=== PATIENT | female | born 1950 | race Caucasian/White ===

== ENCOUNTER → 2016-08-14 | Outpatient (CLI) | payer OTHER ==
--- NOTE | 2016-08-14 17:25 | MAM ---
History: Well woman exam. Date of exam: 08/14/2016 Services provided: Bilateral full field digital screening mammography. CAD, the images were reviewed with R2 computer aided detection. FINDINGS: Glandular tissue is scattered glandular contour with increased mammographic density. Comparison with 2016 exam. Small nodule medial left breast appears new since the prior examination, approximately 6 cm from the nipple and expected at the 8-9 o'clock portion of the left breast. No associated microcalcifications or architectural distortion. Right parenchymal pattern is unremarkable. IMPRESSION: Incomplete study Recommendation: True lateral view left breast with spot compression views in the true lateral and craniocaudal projections. Rolled views left breast. Directed ultrasound if indicated clinically. BIRAD CATEGORY: 0 INCOMPLETE Electronically signed by: Regina Canales MD 08/14/2016 5:25 PM CDT
== END | disposition home or self-care (01) ==
LOC: MAMMO 11:03
PROVIDERS: ATTEND Family Medicine
DX: Z12.31 Encounter for screening mammogram for malignant neoplasm of breast (principal)

== ENCOUNTER → 2016-08-28 | Outpatient (CLI) | payer OTHER ==
--- NOTE | 2016-08-28 12:36 | MAM ---
EXAM DESCRIPTION: Diagnostic Mammo,Left CLINICAL HISTORY: 65 yearsFemaleABN MAMMO COMPARISON: Digital screening bilateral examination 08/14/2016. Targeted left breast ultrasound on the same visit. TECHNIQUE: Digital Spot compression of the anterior mid medial left breast in the ML projection, magnification of the same region in the CC view. And full-field digital left breast ML image. CAD was utilized. FINDINGS: Small mostly well circumscribed oval densities. The borders are partially obscured. The density is equal to that of the surrounding fibroglandular tissues. Small vascular calcifications but no calcifications associated with these regions. Solitary calcifications are seen nearby. ULTRASOUND: Two palpable hypoechoic masses with well-defined maloney and echogenic centers are visualized at the 900 clock position approximately 6 cm from the nipple. Minimal color Doppler vascularity. Mixed posterior features. Parallel orientation. These are consistent with lymph nodes. IMPRESSION: BIRAD CATEGORY: 2 BENIGN Recommendation: Return to routine digital screening bilateral follow-up in one year interval from August 2016. The results and follow-up were discussed in person with the patient. Communication explaining the results and followup will be mailed to the patient and referring care provider. According to the [employer], yearly mammograms are recommended starting at age 40 and continuing as long as a woman is in good health. Any breast change noted on a breast self-exam should be reported promptly to the patient's healthcare provider. Breast MRI is recommended for women with an approximately 20-25% or greater lifetime risk of breast cancer, including women with a strong family history of breast or ovarian cancer and women who have been treated for Hodgkin's disease. A negative mammographic report should not delay tissue diagnosis in patients with significant clinical history or physical findings. Extremely dense breast tissue limits the sensitivity of digital mammography. Electronically signed by: Britton Sherwood MD 08/28/2016 12:36 PM CDT Workstation: [id number]
--- NOTE | 2016-08-28 12:42 | US ---
EXAM DESCRIPTION: Breast,Left CLINICAL HISTORY: 65 yearsFemaleABNORMAL MAMMO COMPARISON: Diagnostic digital mammogram of the left breast on this visit. Bilateral digital screening examination 08/24/2016. TECHNIQUE: Transcutaneous scanning of the 900 clock position of the left breast utilizing two-dimensional and Doppler modes. Scanning performed by the field support representative . FINDINGS: Two palpable hypoechoic masses with well-defined maloney and echogenic centers are visualized at the 900 clock position approximately 6 cm from the nipple. Minimal color Doppler vascularity. Mixed posterior features. Parallel orientation. These are consistent with lymph nodes. IMPRESSION: BIRAD CATEGORY: 2 BENIGN. Please refer to left breast digital diagnostic mammographic examination and report on this visit. The findings and the follow-up plan were reviewed in person with the patient after the examination. Electronically signed by: Britton Sherwood MD 08/28/2016 12:42 PM CDT Workstation: [id number]
== END | disposition home or self-care (01) ==
LOC: MAMMO 09:49
PROVIDERS: ATTEND Family Medicine
DX: R92.8 Other abnormal and inconclusive findings on diagnostic imaging of breast (principal)
CPT/HCPCS: 76641; 77065; G0206

== ENCOUNTER → 2018-02-12 | Outpatient (CLI) | payer MEDICARE, OTHER ==
--- NOTE | 2018-02-14 11:56 | MAM ---
EXAM DESCRIPTION: 3D Screening BILATERAL : Digital Mammography. CLINICAL HISTORY: 67 years Female SCREENING . No complaints or personal history of breast cancer. Sister with breast cancer. Childbirth. Postmenopausal 31 years. Currently on HRT. Lifetime risk of developing breast cancer (Tyrer-Cuzick model)(%): 11.0 COMPARISON: 2-D digital screening bilateral mammography 08/14/2016. Diagnostic digital mammography and left breast ultrasound 08/28/2016 TECHNIQUE: Bilateral CC and MLO projection full-field images, digital tomosynthesis mammographic technique. Bilateral digital 2-D full-field MLO images. CAD not available for tomosynthesis or 2-D images. FINDINGS: The breast parenchymal density pattern is: Heterogeneously dense breast tissue, which may obscure small masses. No skin thickening or nipple retraction. Skin mole marker undersurface posterior right breast. Bilateral solitary microcalcifications. No new focal, stellate mass or density, focal asymmetry , and no suspicious microcalcifications bilaterally. Stable mammograms compared to prior study. Taking into account, differences in mammographic technique. IMPRESSION: Benign exam. BIRAD CATEGORY: 2 BENIGN FINDINGS. RECOMMENDATIONS: FOLLOW UP: Routine digital bilateral mammographic screening, one year interval from February 2018. Written communication explaining the IMPRESSION and follow-up, will be mailed to the patient and referring health care provider. According to the [employer], yearly mammograms are recommended starting at age 40 and continuing as long as a woman is in good health. Any breast change noted on a breast self-exam should be reported promptly to the patient's healthcare provider. Breast MRI is recommended for women with an approximately 20-25% or greater lifetime risk of breast cancer, including women with a strong family history of breast or ovarian cancer and women who have been treated for Hodgkin's disease. A negative mammographic report should not delay tissue diagnosis in patients with significant clinical history or physical findings. Extremely dense breast tissue limits the sensitivity of digital mammography. Electronically signed by: Britton Sherwood MD 02/14/2018 11:54 AM AUDIO VISUAL TECHNICIAN
== END ==
LOC: MAMMO 13:06
PROVIDERS: ATTEND Family Medicine
DX: Z12.31 Encounter for screening mammogram for malignant neoplasm of breast (principal)

== ENCOUNTER 2019-03-16 05:05 | Day surgery (SDC) | payer MEDICARE, OTHER ==
[2019-03-16] MEDS ORDERED: MOXIFLOXACIN HCL (OPHTH) 1 DROP DROPS ONE (05:49)
[2019-03-16] MEDS ORDERED: TROP 1%/CYCLOPEN 1%/PHENYL 2% DROPS OPHTH ONE (10:00)
[2019-03-16] MEDS ORDERED: PROPARACAINE 0.5% OPHTH SOL 15 ML BTTL RIGHT_EYE ONE (10:00)
== END 2019-03-16 07:20 | disposition home or self-care (01) ==
LOC: AMB 05:05
PROVIDERS: ATTEND Ophthalmology
DX: H26.491 Other secondary cataract, right eye (principal); Z88.0 Allergy status to penicillin; Z88.8 Allergy status to other drugs, medicaments and biological substances; Z79.84 Long term (current) use of oral hypoglycemic drugs; Z79.899 Other long term (current) drug therapy

== ENCOUNTER → 2019-04-22 | Outpatient (CLI) | payer MEDICARE, OTHER ==
--- NOTE | 2019-04-22 17:36 | US ---
EXAM DESCRIPTION: 3D Diagnostic, Bilateral (accession [id number]), Breast,Right (accession [id number]): Ultrasound CLINICAL HISTORY: 68 yearsFemale Nipple discharge brownish dark, nipple discharge for approximately 1 month on the right. Increases with compression. Yellowish discharge from left nipple initially but not presently. No personal history of breast cancer. 2 sisters with breast cancer. No other family history of breast cancer. Menarche age 15. Childbirth age 17. Menopause age 38. Currently on HRT Lifetime risk of developing breast cancer (Tyrer-Cuzick model)(%): 9.7. COMPARISON: Bilateral screening digital breast tomosynthesis February 2018. 2-D digital screening bilateral mammography August 2016. TECHNIQUE: Bilateral LM, CC, and MLO projection full-field images, spot compression right retroareolar CC and MLO projections: digital tomosynthesis technique. Bilateral 2-D digital full-field images: LM, CC, and MLO projections. Retroareolar 2-D right breast spot compression CC and LM projections. CAD available for 2-D images.. Transcutaneous scanning of the retroareolar right breast. utilizing briones-scale and Doppler modes. Scanning performed by the psychologist counseling and Dr. Sherwood. FINDINGS: The breast parenchymal density pattern is: Heterogeneously dense breast tissue, which may obscure small masses. No skin thickening or nipple retraction. Dense branching mass in the retroareolar right breast. Not associated with microcalcifications. Not seen on the prior study. Bilateral parenchymal solitary microcalcifications. Bilateral vascular calcifications. No new focal, stellate mass or density, focal asymmetry , and no suspicious microcalcifications left breast. Ultrasound: Scanning of the retroareolar right breast. The nipple is a tubular structure which appears to contain echogenic debris and connect with smaller caliber channels laterally and posteriorly more than medially. The larger retroareolar structure measures 1.2 x 0.8 x 1.1 cm. Wider than tall orientation circumscribed and lobulated margins and posterior acoustic enhancement. No abnormal vascularity. No dominant solid mass. No large calcifications. IMPRESSION: Dilated duct containing debris with smaller branching ducts, but debris could be obscuring a intraductal mass. ASSESSMENT: 1. BI-RADS Category 4: SUSPICIOUS. Sub-category 4A - Low Suspicion For Malignancy. 2. Surgical consultation and tissue diagnosis is recommended if there are no clinical contraindications. The FINDINGS and FOLLOW-UP plan were reviewed in person with the patient following the examination. Written communication explaining the IMPRESSION and FOLLOW-UP will be mailed to the patient and referring care provider. CRITICAL COMMUNICATION: The critical value was discussed directly by phone by Dr. Sherwood, with Dr. Britton Winchester at approximately 1625 hours, on April 22, 2019. Electronically signed by: Britton Sherwood MD 04/22/2019 5:34 PM [facility]
== END ==
LOC: MAMMO 09:00
PROVIDERS: ATTEND Family Medicine
DX: N64.52 Nipple discharge (principal)
CPT/HCPCS: 76641; 77066; G0279

== ENCOUNTER 2019-05-28 05:41 | Day surgery (SDC) | payer MEDICARE, OTHER ==
--- NOTE | 2019-05-25 11:14 | RAD ---
EXAM DESCRIPTION: Chest,2 Views CLINICAL HISTORY: pre op COMPARISON: None TECHNIQUE: PA/lateral FINDINGS: Right rib fractures are present with callus formation. Heart size is normal with normal pulmonary vascularity. No pleural effusion or pneumothorax. Density in the medial left lung base could be related to hiatal hernia although partial volume loss in the left lower lobe could produce a similar appearance. Lungs are otherwise clear with no consolidating infiltrate. Lateral view shows intact sternum and T-spine. On the lateral view, density behind the heart is thought to be hiatal hernia. Correlate with other studies if indicated. IMPRESSION: Right rib fractures. Density behind the heart probably hiatal hernia. Electronically signed by: Dave Jesus MD 05/25/2019 11:12 AM SUPERMARKET MANAGER
[2019-05-28] MEDS ORDERED: PROPOFOL 200 MG/20 ML VIAL IV ONE (07:00)
[2019-05-28] MEDS ORDERED: LIDOCAINE 1% 10 ML VIAL INJ ONE (07:00)
[2019-05-28] MEDS ORDERED: DEXAMETHASONE INJ 10 MG/ML VIAL ONE (07:00)
[2019-05-28] MEDS ORDERED: raNITIdine HCL INJ 25 MG/ML VIAL ONE (07:00)
[2019-05-28] MEDS ORDERED: LACTATED RINGERS 1,000 ML ONE (07:26)
[2019-05-28] MEDS ORDERED: BUPIVACAINE 0.5% W/EPI 30 ML VIAL INJ ONE (08:54)
[2019-05-28] MEDS ORDERED: MIDAZOLAM INJ 2 MG/2 ML VIAL ONE (09:24)
[2019-05-28] MEDS ORDERED: KETAMINE HCL 100 MG/ML VIAL ONE (09:24)
[2019-05-28] MEDS ORDERED: fentaNYL CITRATE INJ 50 MCG/ML AMP ONE (09:25)
[2019-05-28] MEDS: BUPIVACAINE 0.5% W/EPI 30 ML VIAL INJ ONE (09:30)
--- NOTE | 2019-05-28 10:37 | OP ---
DATE OF PROCEDURE: 05/28/19 PREOPERATIVE DIAGNOSIS: 1. Right breast bloody nipple discharge. POSTOPERATIVE DIAGNOSIS: 1. Right breast bloody nipple discharge. PROCEDURE: 1. Right breast duct excision. SURGEON: Brendan Gautam MD. ANESTHESIA: General. FINDINGS: There is a significant amount of dark drainage coming from one particular dilated duct. It was seen as dilated on the biopsy as well. COMPLICATIONS: None. ESTIMATED BLOOD LOSS: Minimal. CONDITION: Stable. PLAN: Discharge. INDICATION: As stated. PROCEDURE: General anesthesia was induced. The patient was prepped and draped in sterile fashion. Upon palpation on either quadrant, there was one particular quadrant we got the dark drainage from a single duct. The tail end of the Anil needle was placed through it with a Silk suture attached. It easily went down into the duct. We then placed a lot of local anesthesia. Infra-areolar incision was made. The subcutaneous tissues were taken down. We undermined at least 1 to 2 cm thickness under the areola going to the area where the needle was coming through to identify that duct. We wrapped around it and then went deep, brought out the stitch through the bottom portion and removed the needle. This had the duct. As we ligated the bottom, there was dark fluid and another duct was identified as dilated. It was within our specimen. The specimen was removed completely. No mass effect or mass on the specimen or the surrounding breast tissue was identified. It was irrigated and closed in 2 to 3 layers with absorbable suture. Dressing was applied. She was awakened and taken to Recovery to be discharged. #[id number] [facility]
[2019-05-28 11:10] VITALS: BP 143/57; TEMP 97.1; O2SAT 94
== END 2019-05-28 11:00 | disposition home or self-care (01) ==
LOC: AMB 05:41
PROVIDERS: ATTEND Surgery
DX: N64.52 Nipple discharge (principal); D24.1 Benign neoplasm of right breast; J44.9 Chronic obstructive pulmonary disease, unspecified; E11.9 Type 2 diabetes mellitus without complications; D64.9 Anemia, unspecified; E78.00 Pure hypercholesterolemia, unspecified; Z90.49 Acquired absence of other specified parts of digestive tract; Z90.710 Acquired absence of both cervix and uterus; Z88.0 Allergy status to penicillin; Z88.8 Allergy status to other drugs, medicaments and biological substances; Z79.899 Other long term (current) drug therapy
CPT/HCPCS: 00400; 19110; 36416; 71046; 82948; 88305; J1100; J2250; J2780; J3010; J3490; J7120